=== PATIENT | female | born 1975 | race Two or more races ===

== ENCOUNTER 2023-12-08 23:14 | Inpatient (IN) | payer MEDICAID, OTHER ==
[~2023-12-08] VITALS: Ht 162.6 cm; Wt 67.1 kg
[2023-12-09] MEDS ORDERED: SODIUM CHLORIDE 0.9% 1,000 ML IV ONE ×2 (00:15)
[2023-12-09 01:30] LABS: ANION GAP 11 mmol/L (8-16); CALCIUM, TOTAL 9.7 mg/dL (8.8-10.5); CARBON DIOXIDE 26 mmol/L (22-29); CHLORIDE 97 mmol/L (98-107); CREATININE 0.84 mg/dL (0.60-1.30); GLOMERULAR FILTR. RATE CALC > 60 mL/min (>60); GLUCOSE,RANDOM 399 mg/dL (70-110); POTASSIUM 4.3 mmol/L (3.5-5.1); SODIUM SERUM 134 mmol/L (136-145); UREA NITROGEN, BLOOD 18 mg/dL (7-18)
[2023-12-09 01:33] LABS: ALCOHOL, BLOOD (SERUM) < 3 mg/dL (0-10)
[2023-12-09 01:36] LABS: ALANINE AMINOTRANSFERASE 62 U/L (12-78); ALBUMIN 3.9 g/dL (3.4-5.0); ALKALINE PHOSPHATASE 110 U/L (46-116); ASPARTATE AMINOTRANSFERASE 36 U/L (15-37); BILIRUBIN,TOTAL 0.3 mg/dL (0.1-1.0); TOTAL PROTEIN, SERUM 7.7 g/dL (6.4-8.2)
[2023-12-09] MEDS ORDERED: INSULIN REGULAR, HUMAN 100 UNITS/ML IVP ONE (01:45)
[2023-12-09 01:47] LABS: AMPHET/METH SCREEN,URINE NEGATIVE (NEGATIVE); BARBITURATE SCREEN, URINE NEGATIVE (NEGATIVE); BENZODIAZEPINES SCREEN,URINE NEGATIVE (NEGATIVE); CANNABINOID SCREEN,URINE NEGATIVE (NEGATIVE); COCAINE SCREEN,URINE NEGATIVE (NEGATIVE); METHADONE SCREEN, URINE NEGATIVE (NEGATIVE); OPIATE SCREEN,URINE NEGATIVE (NEGATIVE); PHENCYCLIDINE SCREEN,URINE NEGATIVE (NEGATIVE)
[2023-12-09 01:49] LABS: ALCOHOL, URINE DRUG SCREEN NEGATIVE (NEGATIVE)
[2023-12-09 02:44] LABS: BASOPHILS % (AUTO) 0.6 % (0.0-2.0); HEMATOCRIT 39.7 % (36-46); HEMOGLOBIN 14.1 g/dL (12.0-16.0); LYMPHOCYTES # (AUTO) 2.1 K/uL (1.0-4.8); LYMPHOCYTES % (AUTO) 31.4 % (22.0-44.0); MEAN CORPUSCULAR HEMOGLOBIN 31.9 pg (26.0-34.0); MEAN CORPUSCULAR HGB CONC 35.4 G/dL (31.0-37.0); MEAN CORPUSCULAR VOLUME 90 fL (80-100); MONOCYTES # (AUTO) 0.6 K/uL (0.1-1.0); MONOCYTES % (AUTO) 8.2 % (2.0-9.0); NEUTROPHILS % (AUTO) 58.8 % (40.0-70.0); PLATELET COUNT (AUTO) 211 K/uL (150-450); RED BLOOD CELL COUNT(AUTO) 4.41 MIL/uL (4.00-5.20); RED CELL DISTRIBUTION WIDTH 12.6 % (11.5-14.5); WHITE BLOOD COUNT (AUTO) 6.7 K/uL (4.5-11.0)
[2023-12-09 03:04] LABS: COVID AG,FIA SOURCE NASAL SWAB
[2023-12-09 03:22] LABS: SARS-COV2 (COVID) ANTIGEN,FIA Negative (Negative)
[2023-12-09] MEDS ORDERED: LABETALOL HCL 5 MG/ML 20 ML VIAL IVP ONE (03:45)
[2023-12-09 04:26] LABS: GLUCOMETER DEV NAME(LOC) ER.6; GLUCOSE,POINT OF CARE 513 MG/DL (70-110)
[2023-12-09 04:26] LABS: GLUCOMETER DEV NAME(LOC) ER.6; GLUCOSE,POINT OF CARE 227 MG/DL (70-110)
[2023-12-09] MEDS ORDERED: LORazepam 2 MG TABLET PO ONE (06:00)
[2023-12-09 06:29] LABS: TROPONIN I-HIGH SENSITIVITY 12 ng/L (<51)
[2023-12-09] MEDS ORDERED: ZOLPIDEM TARTRATE 10 MG TABLET PO PRN (06:30)
[2023-12-09] MEDS ORDERED: OLANZapine 5 MG RAPDIS TABLET PO PRN (06:30)
[2023-12-09] MEDS ORDERED: METOPROLOL TARTRATE 25 MG TABLET PO ONE (08:15)
[2023-12-09 11:15] VITALS: BP 139/78; PULSE 94; RESP 18; TEMP 97.1; O2SAT 99
[2023-12-09 11:47] LABS: GLUCOMETER DEV NAME(LOC) ER.6; GLUCOSE,POINT OF CARE 220 MG/DL (70-110)
[2023-12-09 12:16] LABS: GLUCOMETER DEV NAME(LOC) BV2S.; GLUCOSE,POINT OF CARE 151 MG/DL (70-110)
[2023-12-09] MEDS ORDERED: GLUCAGON,HUMAN RECOMBINANT 1 MG VIAL IM PRN (13:15)
[2023-12-09 16:51] LABS: GLUCOMETER DEV NAME(LOC) BV2S.; GLUCOSE,POINT OF CARE 230 MG/DL (70-110)
[2023-12-09] MEDS: INSULIN GLARGINE,HUM.REC.ANLOG 100 UNITS/ML SQ SCH (16:51)
[2023-12-09] MEDS: INSULIN LISPRO 100 UNITS/ML SQ PRN (16:56)
[2023-12-09 17:07] VITALS: BP 143/87
[2023-12-09] MEDS: METOPROLOL TARTRATE 25 MG TABLET PO SCH (17:08)
[2023-12-09] MEDS ORDERED: ACETAMINOPHEN 325 MG TABLET PO PRN (20:00)
[2023-12-09] MEDS: GABAPENTIN 300 MG CAPSULE PO SCH (20:38)
[2023-12-09] MEDS: LOSARTAN POTASSIUM 25 MG TABLET PO SCH (20:38)
[2023-12-09 20:41] LABS: GLUCOMETER DEV NAME(LOC) BV2S.; GLUCOSE,POINT OF CARE 451 MG/DL (70-110)
[2023-12-09] MEDS ORDERED: INSULIN GLARGINE,HUM.REC.ANLOG 100 UNITS/ML SQ SCH (21:00)
[2023-12-09] MEDS ORDERED: INSULIN LISPRO 100 UNITS/ML SQ ONE (21:15)
[2023-12-09 21:35] VITALS: BP 143/87; PULSE 90; RESP 18; TEMP 98; O2SAT 100
[2023-12-10 00:41] LABS: GLUCOMETER DEV NAME(LOC) BV2S.; GLUCOSE,POINT OF CARE 317 MG/DL (70-110)
[2023-12-10 03:01] VITALS: BP 121/82; PULSE 79; RESP 18; TEMP 97.8; O2SAT 99
[2023-12-10] MEDS: LORazepam 1 MG TABLET PO PRN ×2 (03:03→14:24)
[2023-12-10 06:22] LABS: GLUCOMETER DEV NAME(LOC) BV2S.; GLUCOSE,POINT OF CARE 250 MG/DL (70-110)
[2023-12-10] MEDS: INSULIN LISPRO 100 UNITS/ML SQ PRN ×2 (06:50→16:48)
[2023-12-10 08:30] VITALS: BP 140/80; PULSE 90; RESP 18; TEMP 98; O2SAT 100
[2023-12-10] MEDS: METOPROLOL TARTRATE 25 MG TABLET PO SCH (08:55)
[2023-12-10] MEDS ORDERED: INSULIN GLARGINE,HUM.REC.ANLOG 100 UNITS/ML SQ SCH (09:00)
[2023-12-10] MEDS: INSULIN GLARGINE,HUM.REC.ANLOG 100 UNITS/ML SQ SCH ×2 (09:00→16:45)
[2023-12-10] MEDS ORDERED: INSULIN LISPRO 100 UNITS/ML SQ ONE ×3 (11:30→21:15)
[2023-12-10] MEDS: GABAPENTIN 300 MG CAPSULE PO SCH ×3 (12:47→21:05)
[2023-12-10 13:11] LABS: GLUCOMETER DEV NAME(LOC) BV2S.; GLUCOSE,POINT OF CARE 400 MG/DL (70-110)
[2023-12-10 14:19] VITALS: BP 139/83
[2023-12-10 14:51] LABS: GLUCOMETER DEV NAME(LOC) BV2S.; GLUCOSE,POINT OF CARE 256 MG/DL (70-110)
[2023-12-10 20:39] VITALS: BP 128/86; PULSE 88; RESP 17; TEMP 98; O2SAT 100
[2023-12-10 21:01] LABS: GLUCOMETER DEV NAME(LOC) BV2S.; GLUCOSE,POINT OF CARE 299 MG/DL (70-110)
[2023-12-10 21:01] LABS: GLUCOMETER DEV NAME(LOC) BV2S.; GLUCOSE,POINT OF CARE 407 MG/DL (70-110)
[2023-12-10] MEDS: LOSARTAN POTASSIUM 25 MG TABLET PO SCH (21:05)
[2023-12-10 23:26] LABS: GLUCOMETER DEV NAME(LOC) BV2S.; GLUCOSE,POINT OF CARE 234 MG/DL (70-110)
[2023-12-11 04:32] VITALS: BP 120/85; PULSE 90; RESP 17; TEMP 97.6; O2SAT 98
[2023-12-11] MEDS: LORazepam 1 MG TABLET PO PRN ×2 (04:35→13:52)
[2023-12-11 06:26] LABS: GLUCOMETER DEV NAME(LOC) BV2S.; GLUCOSE,POINT OF CARE 190 MG/DL (70-110)
[2023-12-11] MEDS: INSULIN LISPRO 100 UNITS/ML SQ PRN ×3 (06:33→20:39)
[2023-12-11 08:55] VITALS: BP 114/72; PULSE 100; RESP 18; TEMP 98; O2SAT 98
[2023-12-11] MEDS: GABAPENTIN 300 MG CAPSULE PO SCH ×4 (09:24→20:21)
[2023-12-11] MEDS: METOPROLOL TARTRATE 25 MG TABLET PO SCH (09:25)
[2023-12-11] MEDS: INSULIN GLARGINE,HUM.REC.ANLOG 100 UNITS/ML SQ SCH ×2 (09:28→17:07)
[2023-12-11] MEDS ORDERED: INSULIN LISPRO 100 UNITS/ML SQ ONE ×2 (11:15→13:00)
[2023-12-11 11:46] LABS: GLUCOMETER DEV NAME(LOC) BV2S.; GLUCOSE,POINT OF CARE 555 MG/DL (70-110)
[2023-12-11 13:21] LABS: GLUCOMETER DEV NAME(LOC) BV2S.; GLUCOSE,POINT OF CARE 409 MG/DL (70-110)
[2023-12-11 15:31] LABS: GLUCOMETER DEV NAME(LOC) BV2S.; GLUCOSE,POINT OF CARE 331 MG/DL (70-110)
[2023-12-11 17:17] LABS: GLUCOMETER DEV NAME(LOC) BV2S.; GLUCOSE,POINT OF CARE 363 MG/DL (70-110)
[2023-12-11 20:07] VITALS: BP 108/61; PULSE 89; RESP 18; TEMP 97.7; O2SAT 97
[2023-12-11] MEDS: LOSARTAN POTASSIUM 25 MG TABLET PO SCH (20:21)
[2023-12-11 21:01] LABS: GLUCOMETER DEV NAME(LOC) BV2S.; GLUCOSE,POINT OF CARE 366 MG/DL (70-110)
[2023-12-12] MEDS: INSULIN LISPRO 100 UNITS/ML SQ PRN (06:12)
[2023-12-12 06:26] LABS: GLUCOMETER DEV NAME(LOC) BV2S.; GLUCOSE,POINT OF CARE 216 MG/DL (70-110)
[2023-12-12 08:28] VITALS: BP 131/80; PULSE 91; RESP 17; TEMP 97.9; O2SAT 99
[2023-12-12] MEDS: GABAPENTIN 300 MG CAPSULE PO SCH ×2 (08:35→12:14)
[2023-12-12] MEDS: METOPROLOL TARTRATE 25 MG TABLET PO SCH (08:35)
[2023-12-12] MEDS: INSULIN GLARGINE,HUM.REC.ANLOG 100 UNITS/ML SQ SCH (08:38)
[2023-12-12] MEDS ORDERED: GABA-1181 PO ×4 (09:28→15:20)
[2023-12-12] MEDS ORDERED: METO25 PO (09:33)
[2023-12-12] MEDS ORDERED: LOSA-381 PO (09:33)
[2023-12-12] MEDS ORDERED: INSLAN SQ ×2 (09:40→09:41)
[2023-12-12] MEDS ORDERED: INSULIN LISPRO 100 UNITS/ML SQ ONE ×2 (11:30→13:00)
[2023-12-12 11:31] LABS: GLUCOMETER DEV NAME(LOC) BV2S.; GLUCOSE,POINT OF CARE 494 MG/DL (70-110)
[2023-12-12 13:01] LABS: GLUCOMETER DEV NAME(LOC) BV2S.; GLUCOSE,POINT OF CARE 441 MG/DL (70-110)
[2023-12-12 13:56] LABS: GLUCOMETER DEV NAME(LOC) BV2S.; GLUCOSE,POINT OF CARE 376 MG/DL (70-110)
== END 2023-12-12 14:00 | disposition home or self-care (01) | DRG 754 ==
LOC: EMS 23:15 → B2S 12-09 09:42
PROVIDERS: ADMIT Psychiatry & Neurology Child & Adolescent Psychiatry; ATTEND Psychiatry & Neurology Child & Adolescent Psychiatry
DX: F32.9 Major depressive disorder, single episode, unspecified (principal); R45.851 Suicidal ideations; E11.40 Type 2 diabetes mellitus with diabetic neuropathy, unspecified; E11.65 Type 2 diabetes mellitus with hyperglycemia; G47.00 Insomnia, unspecified; Z20.822 Contact with and (suspected) exposure to COVID-19; I10 Essential (primary) hypertension; Z88.8 Allergy status to other drugs, medicaments and biological substances
CPT/HCPCS: 80053; 80307; 82009; 82962; 84484; 84703; 85025; 93005; 99285; G0480; J1815; J3490; J7030